=== PATIENT | female | born 1965 | race African-American/Black ===

== ENCOUNTER 2022-05-10 13:35 | Inpatient (IN) | payer OTHER ==
[~2022-05-10] VITALS: Ht 162.6 cm; Wt 110.3 kg
[2022-05-10] MEDS ORDERED: ONDANSETRON HCL 4MG/2ML INJ IV STA (14:21)
[2022-05-10] MEDS ORDERED: SODIUM CHLORIDE 0.9% 1,000 ML IV ONE (14:30)
[2022-05-10 15:32] LABS: BG BASE EXCESS -6.5 mmol/L (-2.0-2.0); BG CARBOXYHEMOGLOBIN 0.2 % (0.5-1.5); BG DEOXYHEMOGLOBIN 3.1 % (0.0-5.0); BG HCO3 ACT 16.7 mmol/L (22.0-26.0); BG METHEMOGLOBIN 0.3 % (0.0-1.5); BG OXYGEN SATURATION 96.9 % (92.0-98.5); BG OXYHEMOGLOBIN 96.4 % (94.0-97.0); BG PCO2 27.9 mmHg (35.0-45.0); BG PH 7.394 (7.350-7.450); BG PO2 94.4 mmHg (75.0-100.0); BG SAMPLE SITE RIGHT BRACHIAL; BG TOTAL HEMOGLOBIN 15.7 g/dL (12.0-18.0); BG VENT MODE ROOM AIR
[2022-05-10 15:47] LABS: CLARITY URINE CLEAR (CLEAR); COLOR URINE YELLOW (YELLOW); KETONES URINE 4+ (NEGATIVE); LEUKOCYTE ESTERASE URINE NEGATIVE (NEGATIVE); NITRITE URINE NEGATIVE (NEGATIVE); OCCULT BLOOD URINE NEGATIVE (NEGATIVE); PROTEIN URINE 1+ (NEGATIVE); UROBILINOGEN URINE 0.2 E.U./dL (0.2-1.0)
[2022-05-10 15:51] LABS: BASOPHILS % 0.2 % (0.0-2.0); HEMATOCRIT. 45.8 % (36.0-48.0); HEMOGLOBIN. 15.3 g/dL (12.0-16.0); LYMPHOCYTES % 11.9 % (20.0-50.0); MEAN CORPUSCULAR HEMOGLOBIN 29.3 pg (28.0-32.0); MEAN CORPUSCULAR VOLUME 87.9 fL (81.0-99.0); NEUTROPHILS % 81.9 % (40.0-76.0); PLATELET 194 x1000/uL (130-400); RED BLOOD CELL COUNT 5.22 mill/uL (4.2-5.4)
[2022-05-10 16:44] LABS: CHLORIDE 95 mEq/L (98-107)
[2022-05-10 16:46] LABS: PROTHROMBIN TIME 10.5 sec (9.6-11.0)
[2022-05-10] MEDS ORDERED: AZITHROMYCIN 500 MG in DEXT 5% WATER 250 ML IV STA (17:14)
[2022-05-10] MEDS ORDERED: INSULIN REGULAR (HUMULIN R) 300UNITS/3ML VIAL IV ONE (17:45)
[2022-05-10] MEDS ORDERED: LEVOFLOXACIN 500MG PREMIX 100 ML IV ONE (18:15)
[2022-05-10] MEDS ORDERED: DEXAMETHASONE 10 MG/ML VIAL IV ONE (19:30)
[2022-05-10] MEDS ORDERED: ACETAMINOPHEN 325MG TABLET PO PRN (19:45)
[2022-05-10] MEDS ORDERED: DEXAMETHASONE 10 MG/ML VIAL IV NR (19:45)
[2022-05-10] MEDS ORDERED: NA PHOS,M-B/NA PHOS,DI-BA ENEMA 118ML PR PRN (19:45)
[2022-05-10] MEDS ORDERED: AZITHROMYCIN 500 MG in DEXT 5% WATER 250 ML IV SCH (19:45)
[2022-05-10] MEDS ORDERED: MAGNESIUM/ALUMINUM HYDROXIDE/SIMETHICONE 30ML UDC PO PRN (19:45)
[2022-05-10] MEDS ORDERED: ENOXAPARIN 40MG/0.4ML SYR SUBCUT SCH (20:00)
[2022-05-10] MEDS ORDERED: ONDANSETRON HCL 4MG/2ML INJ IV NR (20:00)
[2022-05-10] MEDS: SODIUM CHLORIDE 0.9% 1,000 ML IV SCH (20:29)
[2022-05-10] MEDS ORDERED: DEXTROSE 50% WATER 50ML SYRINGE IV PRN (23:45)
[2022-05-11] VITALS (8 sets, daily range): BP systolic 123–182; BP diastolic 64–89
[2022-05-11] MEDS: SODIUM CHLORIDE 0.9% 1,000 ML IV SCH (00:56)
[2022-05-11] MEDS: ONDANSETRON HCL 4MG/2ML INJ IV PRN ×2 (00:56→17:51)
[2022-05-11] MEDS ORDERED: INSU100I19 SQ ×2 (03:26→03:27)
[2022-05-11] MEDS ORDERED: EMPA1TAB7 PO (03:26)
[2022-05-11] MEDS ORDERED: ERGO1250 PO (03:26)
[2022-05-11] MEDS ORDERED: AMLO5TAB88 MT (03:26)
[2022-05-11] MEDS ORDERED: NIRM1TAB PO (03:26)
[2022-05-11] MEDS ORDERED: MONT4TAB20 MT (03:27)
[2022-05-11] MEDS ORDERED: *PATIENT'S OWN MEDICATION STORAGE XX SCH (04:00)
[2022-05-11] MEDS: BLOOD SUGAR DIAGNOSTIC STRIP TEST SCH ×4 (05:55→20:41)
[2022-05-11] MEDS: CLONIDINE 0.1MG TABLET PO PRN ×2 (06:04→16:08)
[2022-05-11] MEDS: INSULIN LISPRO 100 UNITS/ML SUBCUT SCH ×4 (06:19→20:49)
[2022-05-11 06:56] LABS: BASOPHILS % 0.1 % (0.0-2.0); HEMATOCRIT. 43.8 % (36.0-48.0); HEMOGLOBIN. 14.8 g/dL (12.0-16.0); LYMPHOCYTES % 8.9 % (20.0-50.0); MEAN CORPUSCULAR HEMOGLOBIN 29.6 pg (28.0-32.0); MEAN CORPUSCULAR VOLUME 87.5 fL (81.0-99.0); MEAN PLATELET VOLUME 8.6 fl (7.4-10.4); MONOCYTES % 1.6 % (2.0-8.0); NEUTROPHILS % 89.4 % (40.0-76.0); PLATELET 143 x1000/uL (130-400); RED BLOOD CELL COUNT 5.01 mill/uL (4.2-5.4); RED CELL DISTRIBUTION WIDTH 13.9 % (11.6-14.6)
[2022-05-11 07:22] LABS: CHLORIDE 102 mEq/L (98-107)
[2022-05-11] MEDS: AMLODIPINE 5MG TABLET PO SCH (09:24)
[2022-05-11] MEDS: DEXAMETHASONE 10 MG/ML VIAL IV SCH (09:24)
[2022-05-11] MEDS ORDERED: INSULIN GLARGINE 100 UNITS/ML SUBCUT SCH (10:00)
[2022-05-11] MEDS: ENOXAPARIN 30MG/0.3ML SYR SUBCUT SCH ×2 (11:18→20:49)
[2022-05-11] MEDS ORDERED: METHYLPREDNISOLONE SOD SUCC 125 MG/2 ML VIAL IV SCH (14:00)
[2022-05-11] MEDS ORDERED: DEXAMETHASONE 10 MG/ML VIAL IV SCH (15:45)
[2022-05-11] MEDS ORDERED: CEFTRIAXONE 1 G PREMIX 50 ML IV SCH (15:45)
[2022-05-11] MEDS: ALBUTEROL 6.7GM HFA INHALER ORI SCH (17:31)
[2022-05-11] MEDS: LEVOFLOXACIN 500MG PREMIX 100 ML IV SCH (17:38)
[2022-05-11] MEDS: IPRATROPIUM/ALBUTEROL 0.5-3(2.5)MG/3ML NEB HHN SCH ×2 (21:44→23:54)
[2022-05-12] VITALS: BP 117/70
[2022-05-12] MEDS: ALBUTEROL 6.7GM HFA INHALER ORI SCH ×4 (00:44→17:13)
[2022-05-12 04:00] VITALS: BP 111/54
[2022-05-12] MEDS: IPRATROPIUM/ALBUTEROL 0.5-3(2.5)MG/3ML NEB HHN SCH ×3 (04:09→17:06)
[2022-05-12] MEDS: BLOOD SUGAR DIAGNOSTIC STRIP TEST SCH ×4 (05:51→20:50)
[2022-05-12] MEDS: INSULIN LISPRO 100 UNITS/ML SUBCUT SCH ×4 (05:57→21:04)
[2022-05-12 07:01] LABS: BASOPHILS % 0.1 % (0.0-2.0); HEMATOCRIT. 41.2 % (36.0-48.0); HEMOGLOBIN. 13.9 g/dL (12.0-16.0); LYMPHOCYTES % 8.8 % (20.0-50.0); MEAN CORPUSCULAR HEMOGLOBIN 29.2 pg (28.0-32.0); MEAN CORPUSCULAR VOLUME 86.9 fL (81.0-99.0); MEAN PLATELET VOLUME 8.5 fl (7.4-10.4); MONOCYTES % 6.9 % (2.0-8.0); NEUTROPHILS % 84.2 % (40.0-76.0); PLATELET 115 x1000/uL (130-400); RED BLOOD CELL COUNT 4.74 mill/uL (4.2-5.4); RED CELL DISTRIBUTION WIDTH 13.7 % (11.6-14.6)
[2022-05-12 08:00] VITALS: BP 121/67
[2022-05-12] MEDS: DEXAMETHASONE 10 MG/ML VIAL IV SCH (09:29)
[2022-05-12] MEDS: ENOXAPARIN 30MG/0.3ML SYR SUBCUT SCH (09:29)
[2022-05-12] MEDS: AMLODIPINE 5MG TABLET PO SCH (09:29)
[2022-05-12 09:30] LABS: CHLORIDE 101 mEq/L (98-107)
[2022-05-12] MEDS: SODIUM CHLORIDE 0.45% 1,000 ML IV SCH ×2 (09:31→17:14)
[2022-05-12 09:41] LABS: BETA HYDROXYBUTYRATE 4.8 mMol/L (0.0-0.3); PHOSPHORUS 2.1 mg/dL (2.5-4.9)
[2022-05-12] MEDS: INSULIN GLARGINE 100 UNITS/ML SUBCUT SCH (09:43)
[2022-05-12] MEDS: ONDANSETRON HCL 4MG/2ML INJ IV PRN (09:44)
[2022-05-12] MEDS ORDERED: INSULIN GLARGINE 100 UNITS/ML SUBCUT SCH (10:00)
[2022-05-12 12:00] VITALS: BP 134/69
[2022-05-12 16:00] VITALS: BP 128/68
[2022-05-12] MEDS: LEVOFLOXACIN 500MG PREMIX 100 ML IV SCH (17:13)
[2022-05-12 20:00] VITALS: BP 138/71
[2022-05-12] MEDS: ENOXAPARIN 40MG/0.4ML SYR SUBCUT SCH (21:02)
[2022-05-13] VITALS: BP 150/83
[2022-05-13] MEDS: ALBUTEROL 6.7GM HFA INHALER ORI SCH ×3 (00:41→12:00)
[2022-05-13 04:00] VITALS: BP 138/71
[2022-05-13] MEDS: ONDANSETRON HCL 4MG/2ML INJ IV PRN (04:50)
[2022-05-13] MEDS: SODIUM CHLORIDE 0.45% 1,000 ML IV SCH ×2 (05:06→14:43)
[2022-05-13] MEDS: BLOOD SUGAR DIAGNOSTIC STRIP TEST SCH ×4 (06:13→21:00)
[2022-05-13] MEDS: INSULIN LISPRO 100 UNITS/ML SUBCUT SCH ×4 (06:21→21:00)
[2022-05-13 08:00] VITALS: BP 134/66
[2022-05-13 09:44] LABS: CHLORIDE 101 mEq/L (98-107)
[2022-05-13 09:45] LABS: BASOPHILS % 0.1 % (0.0-2.0); HEMOGLOBIN. 15.1 g/dL (12.0-16.0); LYMPHOCYTES % 11.4 % (20.0-50.0); MEAN CORPUSCULAR VOLUME 84.7 fL (81.0-99.0); MEAN PLATELET VOLUME 8.7 fl (7.4-10.4); MONOCYTES % 9.2 % (2.0-8.0); NEUTROPHILS % 79.3 % (40.0-76.0); PLATELET 140 x1000/uL (130-400); RED CELL DISTRIBUTION WIDTH 13.4 % (11.6-14.6)
[2022-05-13] MEDS: ENOXAPARIN 40MG/0.4ML SYR SUBCUT SCH (09:51)
[2022-05-13] MEDS: AMLODIPINE 5MG TABLET PO SCH (09:52)
[2022-05-13] MEDS: DEXAMETHASONE 10 MG/ML VIAL IV SCH (09:52)
[2022-05-13 10:12] LABS: PHOSPHORUS 0.6 mg/dL (2.5-4.9)
[2022-05-13] MEDS: INSULIN GLARGINE 100 UNITS/ML SUBCUT SCH (10:14)
[2022-05-13] MEDS ORDERED: POTASSIUM CHLORIDE 20MEQ TABLET SR PO NR (11:00)
[2022-05-13 12:00] VITALS: BP 129/78
[2022-05-13] MEDS ORDERED: POTASSIUM PHOS,M-BASIC-D-BASIC 30 MMOL in DEXT 5% WATER 500 ML IV ONE (13:00)
[2022-05-13] MEDS: CLONIDINE 0.1MG TABLET PO PRN (15:57)
[2022-05-13 16:00] VITALS: BP 172/95
[2022-05-13 20:00] VITALS: BP 149/88
[2022-05-13] MEDS: ENOXAPARIN 30MG/0.3ML SYR SUBCUT SCH (21:00)
[2022-05-14] VITALS: BP 141/82
[2022-05-14] MEDS: SODIUM CHLORIDE 0.45% 1,000 ML IV SCH
[2022-05-14 04:00] VITALS: BP 108/57
[2022-05-14] MEDS: BLOOD SUGAR DIAGNOSTIC STRIP TEST SCH ×4 (06:40→20:33)
[2022-05-14] MEDS: INSULIN LISPRO 100 UNITS/ML SUBCUT SCH ×4 (07:10→21:08)
[2022-05-14 07:45] LABS: BASOPHILS % 0.1 % (0.0-2.0); HEMATOCRIT. 43.2 % (36.0-48.0); HEMOGLOBIN. 14.5 g/dL (12.0-16.0); LYMPHOCYTES % 12.4 % (20.0-50.0); MEAN CORPUSCULAR HEMOGLOBIN 28.7 pg (28.0-32.0); MEAN CORPUSCULAR VOLUME 85.6 fL (81.0-99.0); MEAN PLATELET VOLUME 8.5 fl (7.4-10.4); MONOCYTES % 11.1 % (2.0-8.0); NEUTROPHILS % 76.4 % (40.0-76.0); PLATELET 120 x1000/uL (130-400); RED BLOOD CELL COUNT 5.05 mill/uL (4.2-5.4); RED CELL DISTRIBUTION WIDTH 13.5 % (11.6-14.6)
[2022-05-14] MEDS ORDERED: LIDOCAINE HCL/PF 1% 10 MG/ML 5ML VIAL ONE (07:54)
[2022-05-14 08:00] VITALS: BP 116/63
[2022-05-14 08:07] LABS: CHLORIDE 103 mEq/L (98-107)
[2022-05-14] MEDS ORDERED: POTASSIUM CHLORIDE INJ 60 MEQ in DEXT 5% WATER 250 ML IV ONE (09:00)
[2022-05-14] MEDS: DEXAMETHASONE 10 MG/ML VIAL IV SCH (09:14)
[2022-05-14] MEDS: AMLODIPINE 5MG TABLET PO SCH (09:14)
[2022-05-14] MEDS: ENOXAPARIN 30MG/0.3ML SYR SUBCUT SCH (09:14)
[2022-05-14] MEDS: DEXT 5%/0.45% NACL 1000ML 1,000 ML IV SCH (10:00)
[2022-05-14] MEDS: KCL 20MEQ/100ML X 3 FOR TOTAL KCL 60MEQ/300ML IV SCH ×3 (10:38→16:00)
[2022-05-14 10:42] LABS: PHOSPHORUS 2.1 mg/dL (2.5-4.9)
[2022-05-14 12:00] VITALS: BP 155/88
[2022-05-14] MEDS: INSULIN GLARGINE 100 UNITS/ML SUBCUT SCH (13:06)
[2022-05-14 16:00] VITALS: BP 125/77
[2022-05-14] MEDS: METOCLOPRAMIDE HCL 10MG/2ML VIAL IV SCH (17:40)
[2022-05-14] MEDS ORDERED: IOHEXOL-350 100 ML BOTTLE ONE (19:44)
[2022-05-14 20:00] VITALS: BP 155/86
[2022-05-14] MEDS: ENOXAPARIN 120MG/0.8ML SYR SUBCUT SCH (21:08)
[2022-05-15] VITALS (8 sets, daily range): BP systolic 126–148; BP diastolic 66–85
[2022-05-15] MEDS: METOCLOPRAMIDE HCL 10MG/2ML VIAL IV SCH ×4 (00:20→17:54)
[2022-05-15] MEDS: ALBUTEROL 6.7GM HFA INHALER ORI SCH ×2 (00:30→06:00)
[2022-05-15] MEDS: DEXT 5%/0.45% NACL 1000ML 1,000 ML IV SCH ×2 (02:40→21:16)
[2022-05-15] MEDS: INSULIN LISPRO 100 UNITS/ML SUBCUT SCH ×4 (06:16→21:16)
[2022-05-15] MEDS: BLOOD SUGAR DIAGNOSTIC STRIP TEST SCH ×4 (06:17→21:16)
[2022-05-15 08:10] LABS: BASOPHILS % 0.1 % (0.0-2.0); HEMATOCRIT. 42.8 % (36.0-48.0); HEMOGLOBIN. 14.4 g/dL (12.0-16.0); LYMPHOCYTES % 17.2 % (20.0-50.0); MEAN CORPUSCULAR VOLUME 86.4 fL (81.0-99.0); MONOCYTES % 8.6 % (2.0-8.0); NEUTROPHILS % 74.1 % (40.0-76.0); PLATELET 126 x1000/uL (130-400); RED BLOOD CELL COUNT 4.95 mill/uL (4.2-5.4); RED CELL DISTRIBUTION WIDTH 13.6 % (11.6-14.6)
[2022-05-15 08:21] LABS: INR 1.1; PROTHROMBIN TIME 11.4 sec (9.6-11.0)
[2022-05-15 08:29] LABS: CHLORIDE 100 mEq/L (98-107)
[2022-05-15 08:39] LABS: PHOSPHORUS 2.6 mg/dL (2.5-4.9)
[2022-05-15] MEDS: ENOXAPARIN 120MG/0.8ML SYR SUBCUT SCH ×2 (09:48→21:14)
[2022-05-15] MEDS: AMLODIPINE 5MG TABLET PO SCH (09:48)
[2022-05-15] MEDS: INSULIN GLARGINE 100 UNITS/ML SUBCUT SCH (09:49)
[2022-05-15] MEDS: DEXAMETHASONE 10 MG/ML VIAL IV SCH (09:50)
[2022-05-15] MEDS ORDERED: POTASSIUM CHLORIDE 20MEQ/PACKET PO SCH (11:00)
[2022-05-15] MEDS: KCL 20MEQ/100ML PREMIX 100 ML IV SCH ×2 (16:07→18:04)
[2022-05-16] VITALS: BP 101/61
[2022-05-16] MEDS: METOCLOPRAMIDE HCL 10MG/2ML VIAL IV SCH ×4 (00:41→12:00)
[2022-05-16 04:00] VITALS: BP 114/79
[2022-05-16] MEDS: ALBUTEROL 6.7GM HFA INHALER ORI SCH ×2 (06:00)
[2022-05-16] MEDS: BLOOD SUGAR DIAGNOSTIC STRIP TEST SCH ×2 (06:17→12:07)
[2022-05-16] MEDS: INSULIN LISPRO 100 UNITS/ML SUBCUT SCH ×2 (06:17→12:16)
[2022-05-16 08:00] VITALS: BP 111/64
[2022-05-16] MEDS: AMLODIPINE 5MG TABLET PO SCH (09:00)
[2022-05-16] MEDS: DEXAMETHASONE 10 MG/ML VIAL IV SCH (10:35)
[2022-05-16] MEDS: ENOXAPARIN 120MG/0.8ML SYR SUBCUT SCH (10:36)
[2022-05-16] MEDS: INSULIN GLARGINE 100 UNITS/ML SUBCUT SCH (10:38)
[2022-05-16] MEDS ORDERED: APIX5TAB MT ×2 (11:58→12:30)
[2022-05-16 12:00] VITALS: BP 130/70
[2022-05-16] MEDS: DEXT 5%/0.45% NACL 1000ML 1,000 ML IV SCH (12:00)
[2022-05-16 13:24] VITALS: BP 130/70
== END 2022-05-16 14:20 | disposition home or self-care (01) | DRG 720 ==
LOC: ER 13:50 → 7EST 17:44 → ENRESERV 23:11
PROVIDERS: ADMIT Internal Medicine; ATTEND Internal Medicine
PROC: 05HY33Z Insertion of Infusion Device into Upper Vein, Percutaneous Approach (ICD-10-PCS; principal; 2022-05-14)
PROC: B54MZZA Ultrasonography of Right Upper Extremity Veins, Guidance (ICD-10-PCS; 2022-05-14)
DX: A41.89 Other specified sepsis (principal); J96.00 Acute respiratory failure, unspecified whether with hypoxia or hypercapnia; J12.82 Pneumonia due to coronavirus disease 2019; E11.10 Type 2 diabetes mellitus with ketoacidosis without coma; U07.1 COVID-19; E66.01 Morbid (severe) obesity due to excess calories; E78.5 Hyperlipidemia, unspecified; E04.2 Nontoxic multinodular goiter; E86.0 Dehydration; E87.6 Hypokalemia; I10 Essential (primary) hypertension; J20.8 Acute bronchitis due to other specified organisms; K52.9 Noninfective gastroenteritis and colitis, unspecified; E11.43 Type 2 diabetes mellitus with diabetic autonomic (poly)neuropathy; K31.84 Gastroparesis; Z28.310 Unvaccinated for COVID-19; Z82.49 Family history of ischemic heart disease and other diseases of the circulatory system; Z88.0 Allergy status to penicillin; Z88.1 Allergy status to other antibiotic agents; Z88.2 Allergy status to sulfonamides; Z88.6 Allergy status to analgesic agent; Z88.8 Allergy status to other drugs, medicaments and biological substances; Z68.41 Body mass index [BMI] 40.0-44.9, adult
CPT/HCPCS: 36415; 36573; 36600; 71045; 71275; 74018; 80048; 80053; 81003; 82010; 82375; 82805; 82962; 83036; 83735; 83880; 83930; 83935; 84100; 84132; 84145; 84484; 85025; 87426; 93005; 97162; 99291; C1725; C9803; J0456; J1100; J1650; J1815; J1956; J2405; J2765; J3480; J3490; J7030; J7060; Q9967